=== PATIENT | male | born 1955 | race Caucasian/White ===

== ENCOUNTER 2021-12-23 06:15 | Emergency (ER) | payer OTHER ==
[~2021-12-23] VITALS: Ht 177.8 cm; Wt 78.9 kg
[2021-12-23 06:21] VITALS: BP 146/104
--- NOTE | 2021-12-23 06:26 | NUR ---
PT TAKEN TO BED 8
[2021-12-23] MEDS ORDERED: TAMS0.4C96 PO (06:32)
[2021-12-23] MEDS ORDERED: OMEP40EC23 PO (06:32)
[2021-12-23] MEDS ORDERED: CITA20TA15 PO (06:32)
[2021-12-23] MEDS ORDERED: MORPHINE SULFATE 4 MG/ML SYR IVP ONE (06:45)
[2021-12-23] MEDS ORDERED: KETOROLAC 15 MG/ML VIAL IVP ONE (06:45)
[2021-12-23] MEDS ORDERED: ONDANSETRON 4 MG/2 ML VIAL IVP ONE (06:45)
--- NOTE | 2021-12-23 06:45 | NUR ---
Dr. Diaz examining patient.
--- NOTE | 2021-12-23 07:03 | NUR ---
20G IV CATH RIGHT AC.
--- NOTE | 2021-12-23 07:14 | NUR ---
TURN OVER CARE TO TED BUITRAGO GIVEN
--- NOTE | 2021-12-23 07:16 | NUR ---
REPORT RECEVIED FROM GARY CORDERO.
--- NOTE | 2021-12-23 07:17 | NUR ---
US AT PT BEDSIDE
--- NOTE | 2021-12-23 07:48 | NUR ---
PT AMBULATED TO RESTROOM
--- NOTE | 2021-12-23 08:10 | NUR ---
URINE WALKED TO LAB
--- NOTE | 2021-12-23 09:22 | NUR ---
PT RESTING IN NO APPARENT DISTRESS, BREATHING EVEN AND UNLABORED
[2021-12-23 09:43] LABS: APPEARANCE,URINE SL CLOUDY (CLEAR); BILIRUBIN,URINE NEGATIVE (NEGATIVE); BLOOD, URINE 3+ (NEGATIVE); COLOR,URINE YELLOW (YELLOW); LEUKOCYTE ESTERASE ,URINE NEGATIVE (NEGATIVE); NITRITE, URINE NEGATIVE (NEGATIVE); UGLUCOSE NEGATIVE (NEGATIVE)
[2021-12-23 10:02] LABS: CALCIUM OXALATE CRYSTALS,UR None Seen /HPF (None Seen); TRICHOMONAS,URINE None Seen /HPF (None Seen); URIC ACID CRYSTALS,URINE None Seen /HPF (None Seen); WBC,URINE 0-5 /HPF (0-5); YEAST,URINE None Seen /HPF (None Seen)
[2021-12-23 10:03] LABS: COARSE GRANULAR CASTS,URINE None Seen /LPF (None Seen); FINE GRANULAR CASTS,URINE None Seen /LPF (None Seen); HYALINE CASTS, URINE None Seen /LPF (None Seen); OTHER CASTS, URINE None Seen /LPF (None Seen); OTHER CRYSTALS,URINE None Seen /HPF (None Seen); RED BLOOD CELL CASTS,URINE None Seen /LPF (None Seen); TRIPLE PHOSPHATE CRYSTAL,UR None Seen /HPF (None Seen); URINE AMORPHOUS URATE None Seen /HPF (None Seen); WAXY CASTS,URINE None Seen /LPF (None Seen)
[2021-12-23] MEDS ORDERED: IBUP-2213 PO (10:22)
[2021-12-23] MEDS ORDERED: ONDA-188 SL (10:22)
[2021-12-23 10:36] VITALS: BP 119/64
--- NOTE | 2021-12-23 10:37 | NUR ---
Patient discharged with v/s stable. Written and verbal after care instructions given and explained. Patient alert, oriented and verbalized understanding of instructions. Ambulatory with steady gait. All questions addressed prior to discharge. ID band removed. Patient advised to follow up with PMD. Rx of IBUPROFEN, ZOFRAN given. Patient educated on indication of medication including possible reaction and side effects. Opportunity to ask questions provided and answered.
[2021-12-23] MEDS ORDERED: HYDR-5080 PO (15:10)
== END 2021-12-23 10:37 | disposition home or self-care (01) ==
LOC: MED 06:15
DX: N20.0 Calculus of kidney (principal); Z79.899 Other long term (current) drug therapy; Z98.890 Other specified postprocedural states; Z87.442 Personal history of urinary calculi
CPT/HCPCS: 76705; 81001; 96374; 96375; 99284; J1885; J2270; J2405; Q0092

== ENCOUNTER 2021-12-23 14:07 | Emergency (ER) | payer OTHER ==
[~2021-12-23] VITALS: Ht 177.8 cm; Wt 79.8 kg
[~2021-12-23 14:07] MED LIST: CITA20TA15 PO; IBUP-2213 PO; OMEP40EC23 PO; ONDA-188 SL; TAMS0.4C96 PO
[2021-12-23 14:21] VITALS: BP 145/78
[2021-12-23] MEDS ORDERED: HYDR-5080 PO (15:10)
--- NOTE | 2021-12-23 15:15 | NUR ---
NO NURSING INTERVENTIONS PERFORMED.
--- NOTE | 2021-12-23 15:16 | NUR ---
Patient discharged with v/s stable. Written and verbal after care instructions given and explained for Kidney Stones. Patient alert, oriented and verbalized understanding of instructions. Ambulatory with steady gait. All questions addressed prior to discharge. ID band removed. Patient advised to follow up with PMD. Rx of Hydrocodone/Acetaminophen given. Patient educated on indication of medication including possible reaction and side effects. Opportunity to ask questions provided and answered.
== END 2021-12-23 15:16 | disposition home or self-care (01) ==
LOC: MED 14:07
DX: N20.0 Calculus of kidney (principal); Z87.442 Personal history of urinary calculi; Z79.899 Other long term (current) drug therapy
CPT/HCPCS: 99283

== ENCOUNTER 2021-12-25 14:50 | Emergency (ER) | payer OTHER ==
[~2021-12-25] VITALS: Ht 177.8 cm; Wt 78.9 kg
[~2021-12-25 14:50] MED LIST changes: +HYDR-5080 PO
[2021-12-25 15:05] VITALS: BP 138/67
--- NOTE | 2021-12-25 15:35 | NUR ---
Patient ambulated to bed 08 with steady/even gait.
--- NOTE | 2021-12-25 15:55 | NUR ---
66 y/o M BIB self from home c/o low back pain x a few days. Patient A&Ox4, ambulatory, states seen at [facility] two days ago for similiar symptoms. States symptoms have not improved since US workup. Patient states pain 7/10, pulsating/constant, non-radiating pain. Pt also reports nausea. Denies vomiting, fever, dysuria, abdominal pain. States Zofran prior to arrival. Bed locked in lowest position, side rails x 1. pmh: enlarged prostate nka med: citalopram
--- NOTE | 2021-12-25 16:06 | NUR ---
Patient transported to CT by wheelchair.
--- NOTE | 2021-12-25 16:11 | NUR ---
PT BACK FROM CT.
[2021-12-25 16:23] LABS: BASOPHILS # (AUTO) 0.1 K/uL (0.00-0.22); EOSINOPHILS # (AUTO) 0.2 K/uL (0-0.4); EOSINOPHILS % (AUTO) 2.5 % (0.0-4.0); HEMATOCRIT 40.5 % (36-52); HEMOGLOBIN 13.8 g/dL (12.0-18.0); LYMPHOCYTES # (AUTO) 1.5 K/uL (2.0-11.5); LYMPHOCYTES % (AUTO) 21.2 % (20.5-51.1); MEAN CORPUSCULAR HEMOGLOBIN 28 pg (27-31); MEAN CORPUSCULAR HGB CONC 34 g/dL (33-37); MONOCYTES # (AUTO) 0.6 K/uL (0.8-1.0); NEUTROPHILS # (AUTO) 4.9 K/uL (1.8-7.7); NEUTROPHILS % (AUTO) 67.3 % (42.2-75.2); PLATELET COUNT (AUTO) 245 K/uL (140-450); RED BLOOD CELL COUNT(AUTO) 4.88 MIL/uL (4.20-6.10); RED CELL DISTRIBUTION WIDTH 13.7 % (11.6-13.7); WHITE BLOOD COUNT (AUTO) 7.3 K/uL (4.8-10.8)
[2021-12-25 17:08] LABS: ALBUMIN 3.7 g/dL (3.4-5.0); ANION GAP 8.9 (8-16); CARBON DIOXIDE 31.1 mmol/L (21-32); CREATININE 1.1 mg/dL (0.6-1.3); TOTAL BILIRUBIN 0.4 mg/dL (0.0-1.0)
[2021-12-25 17:45] LABS: APPEARANCE,URINE CLEAR (CLEAR); BILIRUBIN,URINE NEGATIVE (NEGATIVE); BLOOD, URINE 2+ (NEGATIVE); COLOR,URINE YELLOW (YELLOW); LEUKOCYTE ESTERASE ,URINE NEGATIVE (NEGATIVE); NITRITE, URINE NEGATIVE (NEGATIVE); UGLUCOSE NEGATIVE (NEGATIVE)
[2021-12-25 17:47] VITALS: BP 125/66
--- NOTE | 2021-12-25 17:47 | NUR ---
Patient states no pain at rest. VSS; respirations even/unlabored. Bed locked in lowest position, side rails x 1.
[2021-12-25 17:49] LABS: RBC,URINE 20-50 /HPF (0-5); WBC,URINE 0 /HPF (0-5)
--- NOTE | 2021-12-25 18:05 | NUR ---
Patient does not wish to proceed with medical care recommended by ARLETH Johnson. Patient given information related to possible complications, up to and including , which could occur as a result of leaving hospital at this time. Patient verbalizes understanding of risks involved leaving against medical advice. Patient has signed AMA form.
--- NOTE | 2021-12-25 18:05 | NUR ---
Patient requesting to speak with provider. ARLETH Johnson made aware; is at bedside with patient
== END 2021-12-25 18:05 | disposition left against medical advice (07) ==
LOC: MED 14:50
DX: N20.0 Calculus of kidney (principal); Z79.899 Other long term (current) drug therapy; Z98.890 Other specified postprocedural states
CPT/HCPCS: 36415; 80053; 81001; 85025; 99284

== ENCOUNTER 2022-04-03 18:27 | Inpatient (IN) | payer OTHER ==
[~2022-04-03] VITALS: Ht 177.8 cm; Wt 80.3 kg
[2022-04-03 18:48] VITALS: BP 164/86
[2022-04-03] MEDS ORDERED: NACL 0.9% 1,000 ML IV ONE (18:55)
[2022-04-03 19:15] LABS: BASOPHILS % (AUTO) 0.4 % (0.0-2.0); EOSINOPHILS # (AUTO) 0.1 K/uL (0-0.4); EOSINOPHILS % (AUTO) 0.4 % (0.0-4.0); HEMATOCRIT 40.9 % (36-52); LYMPHOCYTES # (AUTO) 1.2 K/uL (2.0-11.5); LYMPHOCYTES % (AUTO) 9.2 % (20.5-51.1); MEAN CORPUSCULAR HEMOGLOBIN 29 pg (27-31); MEAN CORPUSCULAR HGB CONC 34 g/dL (33-37); MEAN CORPUSCULAR VOLUME 83.2 fL (80-94); MONOCYTES # (AUTO) 0.9 K/uL (0.8-1.0); MONOCYTES % (AUTO) 6.9 % (1.7-9.3); NEUTROPHILS # (AUTO) 10.6 K/uL (1.8-7.7); NEUTROPHILS % (AUTO) 83.1 % (42.2-75.2); PLATELET COUNT (AUTO) 214 K/uL (140-450); RED BLOOD CELL COUNT(AUTO) 4.92 MIL/uL (4.20-6.10); RED CELL DISTRIBUTION WIDTH 13.8 % (11.6-13.7); WHITE BLOOD COUNT (AUTO) 12.7 K/uL (4.8-10.8)
--- NOTE | 2022-04-03 19:26 | NUR ---
PT AMBULATED TO BED #5
[2022-04-03 19:30] LABS: ALBUMIN 3.7 g/dL (3.4-5.0); ANION GAP 12.1 (8-16); CARBON DIOXIDE 27.8 mmol/L (21-32); CREATININE 1.1 mg/dL (0.6-1.3); POTASSIUM 3.9 mmol/L (3.5-5.1); TOTAL BILIRUBIN 0.5 mg/dL (0.0-1.0)
[2022-04-03 19:40] LABS: BILIRUBIN,URINE NEGATIVE (NEGATIVE); BLOOD, URINE 3+ (NEGATIVE); COLOR,URINE YELLOW (YELLOW); LEUKOCYTE ESTERASE ,URINE 2+ (NEGATIVE); NITRITE, URINE POSITIVE (NEGATIVE); UGLUCOSE NEGATIVE (NEGATIVE)
[2022-04-03 19:41] LABS: APPEARANCE,URINE HAZY (CLEAR)
[2022-04-03 20:08] LABS: RBC,URINE 20-50 /HPF (0-5); WBC,URINE TOO MANY TO COUNT /HPF (0-5)
--- NOTE | 2022-04-03 20:33 | NUR ---
66 C/O BURNING URINATION X 2 DAYS. PT STATES CLOUDY URINE. PT STATES PAIN IN URETHRA ONLY. PT HAD A FEVER DURING THE NIGHT WITH CHILLS AND SWEATING. PT HAS BEEN TAKING TYLENOL TO MANAGE FEVER/. PT HAS HAD HX OF KIDNEY STONES. PMH: TAMSULOSIN- ENLARGED PROSTATE SELEXA- DEPERESSION
[2022-04-03] MEDS ORDERED: cefTRIAXone 1,000 MG VIAL ONE (20:39)
--- NOTE | 2022-04-03 20:50 | NUR ---
dr stout at bedside
--- NOTE | 2022-04-03 20:57 | NUR ---
dr dunn performing pelvic ultrasound
[2022-04-03] MEDS ORDERED: PHENAZOPYRIDINE 100 MG TAB PO ONE (21:00)
[2022-04-03] MEDS ORDERED: ONDANSETRON 4 MG/2 ML VIAL IVP ONE (21:35)
[2022-04-03] MEDS ORDERED: MORPHINE SULFATE 4 MG/ML SYR IVP ONE (21:35)
[2022-04-03] MEDS ORDERED: HYDROmorphone PFS 2 MG/ML SYR IVP ONE (22:10)
--- NOTE | 2022-04-03 23:00 | NUR ---
# 14 FR coudet Yang catheter with 10 ml utilizing sterile technique. Immediate return of 300 ml orange urine noted. Bedside drainage bag placed below level of bladder. Urine sample collected and sent to lab. Pt tolerated procedure well.
[2022-04-03] MEDS ORDERED: HYDROcodone/APAP 5/325 MG 1 TAB TAB PO PRN (23:05)
[2022-04-04] MEDS: NACL 0.9% 1,000 ML IV SCH ×5 (00:13→20:00)
[2022-04-04] MEDS ORDERED: HYDROcodone/APAP 7.5/325 MG 1 TAB PO PRN (00:25)
[2022-04-04] MEDS ORDERED: ZOLPIDEM 5 MG TAB PO PRN (00:25)
[2022-04-04] MEDS ORDERED: ACETAMINOPHEN 325 MG TAB PO PRN (00:25)
[2022-04-04] MEDS ORDERED: POTASSIUM CHLORIDE 10 MEQ TABER PO PRN (00:25)
[2022-04-04] MEDS ORDERED: ONDANSETRON 4 MG/2 ML VIAL IM/IVP PRN (00:25)
[2022-04-04] MEDS ORDERED: DOCUSATE SODIUM 100 MG GELCAP PO PRN (00:25)
[2022-04-04] MEDS ORDERED: guaiFENesin DM 200/20 MG-10 ML 10 ML UDC PO PRN (00:25)
[2022-04-04] MEDS ORDERED: MORPHINE SULFATE 2 MG/ML SYR IVP PRN (00:30)
--- NOTE | 2022-04-04 00:38 | NUR ---
Patient will be admitted to care of anibal. Admited to med surg. Will go to room 106a. Belongings list completed. Report to kathryn
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
[2022-04-04 01:04] VITALS: BP 118/68
[2022-04-04 01:17] LABS: CHOL/HDL RATIO 5.7 (1-4.5); FREE T4 (FREE THYROXINE) 0.92 ng/dL (0.76-1.46); MAGNESIUM 1.9 mg/dL (1.8-2.4); PHOSPHORUS 1.5 mg/dL (2.5-4.9)
--- NOTE | 2022-04-04 01:20 | NUR ---
The patient's care was reviewed and supervised by Belinda Chester RN.
[2022-04-04 01:35] LABS: PROTHROMBIN TIME 10.4 secs (10.8-13.4)
--- NOTE | 2022-04-04 02:18 | NUR ---
PATIENT WAS NOTED IN BED AWAKE. SLEEP PRN WAS GIVEN TO HAVE GOOD REST. NURSING WILL MONITOR IN ONE HOUR FO R EFFECTIVENESS. CHEST RISING AND FALLING WITHOUT INCIDENT. NO NOTED S/S OF PAIN/DISCOMFORT. PATIENT REMAINED CLEAN AND DRY. BED AT THE LOWEST LEVEL SIDE RAILS UP X 2 FOR COMFORT AND SAFETY. NURSING WILL CONTINUE TO MONITOR FOR ANTICIPATED NEEDS. CALL LIGHT WITHIN REACH. [email or web address]
--- NOTE | 2022-04-04 04:07 | NUR ---
PATIENT NOTED IN BED ASLEEP. CHEST RISING AND FALLING WITHOUT INCIDENT. NO NOTED S/S OF PAIN/DISCOMFORT. PATIENT REMAINED CLEAN AND DRY. BED AT THE LOWEST LEVEL SIDERAILS UP X 2 FOR COMFORT AND SAFETY. NURSING WILL CONTINUE TO MONITOR FOR ANTICIPATED NEEDS. CALL LIGHT WITHIN REACH. [email or web address]
--- NOTE | 2022-04-04 05:07 | NUR ---
PATIENT IN BED ASLEEP BUT EASY AT AROUSE. PATIENT STATED HE GOT SOME SLEEP. NO NOTED PAIN/DISCOMFORT. URINE DRAINAGE NOTED A CLEAR DARK REDDISH BROWN TEA. CALL LIGHT WITHIN REACH TO CALL FOR ASSISTANCE. SIDE RAILS UP FOR ASSISTANCE. SIDE RAILS UP X 2. [id number]
--- NOTE | 2022-04-04 07:42 | NUR ---
GOT REPORT FROM THE HAND CANDY MOLDER NURSE , PT IN BED GREETING .[id number]
[2022-04-04] MEDS: PANTOPRAZOLE 40 MG TABEC PO SCH (08:34)
[2022-04-04] MEDS: CITALOPRAM 20 MG TAB PO SCH (08:34)
--- NOTE | 2022-04-04 08:48 | NUR ---
PATIENT HAS BEEN SCREENED AND CATEGORIZED MODERATE NUTRITION RISK. PATIENT WILL BE SEEN WITHIN 3-[address] OF ADMISSION. [address]
[2022-04-04] MEDS: TAMSULOSIN 0.4 MG CAP PO SCH ×2 (09:00→20:11)
--- NOTE | 2022-04-04 14:46 | NUR ---
DC [age] YRS OLD MALE PATIENT WAS ADMITTED FROM HOME WITH A DX OF URINARY RETENTION AND UTI. PATIENT HAS A HX OF BPH AND KIDNEY STONE. CXR SHOWED RAPID COVID TEST NEGATIVE. URINE CULTURE PENDING. ADMINISTERED IVF, IV ABX ROCEPHIN. CONSULTED WITH UROLOGIST. DC PLAN TO GO HOME WHEN STABLE. CM TO FOLLOW.
[2022-04-04 15:45] VITALS: BP 118/68
--- NOTE | 2022-04-04 19:30 | NUR ---
RECEIVED REPORT FROM DAY SHIFT JUAN RAMON ROBERTSON. PT IS AAOX4. PT IS RESTING IN BED ON RA. PT HAS FC DRAINING CLEAR YELLOW URINE. PT HAS LEFT AC 22 GAUGE WITH NS 60 CC/HR. PT IS NOT IN ANY DISTRESS. DENIES ANY PAIN. PLAN OF CARE DISCUSSED. CALL LIGHT WITHIN REACH. WILL CONTINUE TO OBSERVE THE PT.
[2022-04-04 20:00] VITALS: BP 115/69
--- NOTE | 2022-04-04 20:30 | NUR ---
ALL DUE MEDS GIVEN. NO ADVERSE REACTION NOTED. PT WAS CONCERN IF THERE WAS NEPHRO DOCTOR ON THE CASE. TOLD HIM THERE IS A CONSULTATION FOR ONE. ALL QUESTIONS ANSWERED. WILL CONTINUE TO MONITOR THE PT.
--- NOTE | 2022-04-05 00:56 | NUR ---
PT IS AWAKE ON THE PHONE. PT IS NOT IN ANY ACUTE DISTRESS. IVF RUNNING PER MD ORDER. CALL LIGHT WITHIN REACH. ALL SAFETY MEASURES TAKEN. WILL CONTINUE TO MONITOR THE PT.
--- NOTE | 2022-04-05 02:35 | NUR ---
PT IS SLEEPING IN BED COMFORTABLY. PT IS NOT IN ANY ACUTE DISTRESS. BREATHING EVEN AND UNLABORED. IVF RUNNING PER MD ORDER. CALL LIGHT WITHIN REACH. ALL SAFETY MEASURES TAKEN. WILL CONTINUE TO MONITOR THE PT.
[2022-04-05 04:00] VITALS: BP 121/68
[2022-04-05] MEDS: NACL 0.9% 1,000 ML IV SCH ×3 (05:00→15:00)
[2022-04-05 05:43] LABS: BASOPHILS % (AUTO) 0.5 % (0.0-2.0); EOSINOPHILS % (AUTO) 0.3 % (0.0-4.0); HEMATOCRIT 37.4 % (36-52); HEMOGLOBIN 12.7 g/dL (12.0-18.0); LYMPHOCYTES # (AUTO) 0.9 K/uL (2.0-11.5); LYMPHOCYTES % (AUTO) 10.9 % (20.5-51.1); MEAN CORPUSCULAR HEMOGLOBIN 28 pg (27-31); MEAN CORPUSCULAR HGB CONC 34 g/dL (33-37); MEAN CORPUSCULAR VOLUME 83.2 fL (80-94); MONOCYTES % (AUTO) 12.4 % (1.7-9.3); NEUTROPHILS # (AUTO) 5.9 K/uL (1.8-7.7); NEUTROPHILS % (AUTO) 75.9 % (42.2-75.2); PLATELET COUNT (AUTO) 197 K/uL (140-450); RED CELL DISTRIBUTION WIDTH 13.7 % (11.6-13.7); WHITE BLOOD COUNT (AUTO) 7.8 K/uL (4.8-10.8)
[2022-04-05 05:47] LABS: ANION GAP 13.3 (8-16); CARBON DIOXIDE 24.4 mmol/L (21-32); CREATININE 0.9 mg/dL (0.6-1.3); POTASSIUM 3.7 mmol/L (3.5-5.1)
--- NOTE | 2022-04-05 07:11 | NUR ---
ENDORSED PT TO DAY SHIFT RN FOR CONTINUITY OF CARE. PT IS STABLE.
--- NOTE | 2022-04-05 07:21 | NUR ---
GOT REPORT FROM THE NIGHT NURSE. PT AWAKE NO DISCOMFORT.[id number]
[2022-04-05] MEDS: PANTOPRAZOLE 40 MG TABEC PO SCH (08:41)
[2022-04-05] MEDS: TAMSULOSIN 0.4 MG CAP PO SCH (08:41)
[2022-04-05] MEDS: CITALOPRAM 20 MG TAB PO SCH (08:41)
[2022-04-05] MEDS ORDERED: FINA5TAB1 PO (09:15)
[2022-04-05] MEDS ORDERED: FINASTERIDE 5 MG TAB PO SCH (09:15)
[2022-04-05] MEDS ORDERED: TAMS0.4C96 PO (09:15)
[2022-04-05 12:00] VITALS: BP 121/68
[2022-04-05 13:52] VITALS: BP 120/74
--- NOTE | 2022-04-05 16:37 | NUR ---
PT IS DISCHARGED, DISCHARGE INSTRUCTION GIVEN , IV AND ID BAND REMOVED , WALKED OUT PT WITHOUT ANY DISCOMFORT.[id number]
== END 2022-04-05 16:35 | disposition home or self-care (01) | DRG 872 ==
LOC: MED 18:27 → MTU 22:28
PROVIDERS: ADMIT Family Medicine; ATTEND Family Medicine
PROC: 0T9B70Z Drainage of Bladder with Drainage Device, Via Natural or Artificial Opening (ICD-10-PCS; principal; 2022-04-03)
DX: A41.9 Sepsis, unspecified organism (principal); N13.6 Pyonephrosis; E87.1 Hypo-osmolality and hyponatremia; N40.0 Benign prostatic hyperplasia without lower urinary tract symptoms; E83.39 Other disorders of phosphorus metabolism; N41.9 Inflammatory disease of prostate, unspecified; E78.1 Pure hyperglyceridemia; Z20.822 Contact with and (suspected) exposure to COVID-19; Z79.891 Long term (current) use of opiate analgesic; Z79.899 Other long term (current) drug therapy
CPT/HCPCS: 36415; 71045; 80048; 80053; 81001; 82150; 83036; 83605; 83690; 83735; 84100; 84436; 84439; 84443; 84479; 85025; 85610; 85730; 87081; 87086; 93005; 96361; 96365; 96375; 99285; J0696; J1170; J2270; J2405; J7060

== ENCOUNTER 2022-12-29 16:17 | Emergency (ER) | payer OTHER ==
[~2022-12-29] VITALS: Ht 177.8 cm; Wt 78.0 kg
[~2022-12-29 16:17] MED LIST changes: +CEPH-588 PO; +FINA5TAB1 PO
[2022-12-29 16:39] VITALS: BP 131/74
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
[2022-12-29] MEDS ORDERED: ACETAMINOPHEN 325 MG TAB PO ONE (17:15)
[2022-12-29] MEDS ORDERED: IBUP-2213 PO (18:46)
[2022-12-29] MEDS ORDERED: LID5T TP (18:46)
[2022-12-29] MEDS ORDERED: CYCL-711 PO (18:46)
[2022-12-29 18:50] VITALS: BP 136/68
== END 2022-12-29 18:50 | disposition home or self-care (01) ==
LOC: MED 16:17
DX: S16.1XXA Strain of muscle, fascia and tendon at neck level, initial encounter (principal); S46.911A Strain of unspecified muscle, fascia and tendon at shoulder and upper arm level, right arm, initial encounter; M25.521 Pain in right elbow; M25.531 Pain in right wrist; R03.0 Elevated blood-pressure reading, without diagnosis of hypertension; M79.601 Pain in right arm; Z79.899 Other long term (current) drug therapy; Z79.1 Long term (current) use of non-steroidal anti-inflammatories (NSAID); Z79.2 Long term (current) use of antibiotics; Z79.891 Long term (current) use of opiate analgesic; V89.2XXA Person injured in unspecified motor-vehicle accident, traffic, initial encounter; Y93.89 Activity, other specified; Y92.410 Unspecified street and highway as the place of occurrence of the external cause; Y99.8 Other external cause status
CPT/HCPCS: 70450; 72125; 73060; 73080; 73110; 99284